=== PATIENT | male | born 1970 | race Caucasian/White ===

== ENCOUNTER 2018-09-29 06:23 | Inpatient (IN) | payer OTHER ==
[2018-09-29] MEDS ORDERED: SEVOFLURANE 15 MIN (07:00)
[2018-09-29] MEDS ORDERED: ROCURONIUM 50 MG INJ (07:00)
[2018-09-29] MEDS ORDERED: CEFAZOLIN 1 GM INJ (07:00)
[2018-09-29] MEDS: CEFAZOLIN 1 GM INJ (09:15)
[2018-09-29] MEDS: BUPIVACAINE 0.5%/EPI (SDV) 30 ML INJ ×2 (09:15→14:02)
[2018-09-29] MEDS: GELATIN SIZE 100 SPONGE (09:16)
[2018-09-29] MEDS: THROMBIN 5000 UNIT VIAL (09:16)
[2018-09-29] MEDS: HEPARIN 1000 UNITS/ML 10 ML INJ (09:19)
[2018-09-29] MEDS ORDERED: MEPERIDINE 25 MG INJ (15:11)
[2018-09-29] MEDS ORDERED: FENTAnyl 50 MCG/ML VIAL (15:11)
[2018-09-29] MEDS: MEPERIDINE 25 MG INJ IV (15:13)
[2018-09-29] MEDS: FENTAnyl 50 MCG/ML VIAL IV ×2 (15:15→15:36)
[2018-09-29] MEDS ORDERED: FENTAnyl 50 MCG/ML VIAL IV (15:30)
[2018-09-29] MEDS ORDERED: hydrALAzine 20 MG INJ IV (15:30)
[2018-09-29] MEDS ORDERED: HYDROmorphONE 1 MG/5 ML IV SYRINGE IV (15:30)
[2018-09-29] MEDS ORDERED: ACETAMINOPHEN 325 MG TAB PO (15:30)
[2018-09-29] MEDS ORDERED: PROCHLORPERAZINE 10 MG TAB PO (15:30)
[2018-09-29] MEDS ORDERED: NALOXONE (0.4 MG/ML) INJ IV (15:30)
[2018-09-29] MEDS ORDERED: ONDANSETRON 4 MG INJ IV ×2 (15:30)
[2018-09-29] MEDS ORDERED: LABETALOL HCL 20MG INJ IV (15:30)
[2018-09-29] MEDS ORDERED: NACL 0.9% 3 ML SYG IV (15:30)
[2018-09-29] MEDS ORDERED: HYDROCODONE/APAP (5/325) TAB PO (15:30)
[2018-09-29] MEDS ORDERED: METOCLOPRAMIDE 10 MG INJ IV (15:30)
[2018-09-29] MEDS: HYDROmorphONE 0.2 MG/ML PCA IV (15:33)
[2018-09-29] MEDS: HYDROmorphONE 1 MG/5 ML IV SYRINGE IV ×3 (15:56→16:19)
[2018-09-29] MEDS ORDERED: DIPHENHYDRAMINE 50 MG INJ (16:44)
[2018-09-29] MEDS ORDERED: ALBUTEROL HFA 8 GM INHALER INH (17:00)
[2018-09-29] MEDS ORDERED: DIPHENHYDRAMINE 50 MG INJ IV (17:00)
[2018-09-29] MEDS: SOD CHLORIDE 0.9% 1,000 ML IV (17:42)
[2018-09-29] MEDS: CEFAZOLIN 1 GM/50 ML (PMX) 50 ML IVPB ×2 (17:42→23:57)
[2018-09-29] MEDS ORDERED: LORAZEPAM 2 MG INJ IV (21:30)
[2018-09-29] MEDS: MOMETASONE 0.24 GM INHALER INH (21:48)
[2018-09-29] MEDS: LORAZEPAM 2 MG INJ IV (22:59)
[2018-09-30] MEDS: CEFAZOLIN 1 GM/50 ML (PMX) 50 ML IVPB ×2 (05:03→11:41)
[2018-09-30] MEDS: HYDROmorphONE 0.2 MG/ML PCA IV ×2 (05:03→17:01)
[2018-09-30] MEDS: PANTOPRAZOLE (EC) 40 MG TAB PO (05:24)
[2018-09-30] MEDS: SOD CHLORIDE 0.9% 1,000 ML IV ×3 (05:30→18:00)
[2018-09-30 05:45] LABS: HEMATOCRIT 37.3 % (42.0-52.0); HEMOGLOBIN 12.5 g/dl (14.0-18.0)
[2018-09-30 06:15] LABS: ANION GAP 6 (5-13); BLOOD UREA NITROGEN 20 mg/dl (7-20); CALCIUM 8.1 mg/dl (8.4-10.2); CARBON DIOXIDE 31 mmol/L (21-31); CHLORIDE 97 mmol/L (97-110); CREATININE 0.91 mg/dl (0.61-1.24); Estimated GFR > 60 mL/min (>60); GLUCOSE 115 mg/dl (70-220); POTASSIUM 3.7 mmol/L (3.5-5.1); SODIUM 134 mmol/L (135-144)
[2018-09-30] MEDS: LOSARTAN 50 MG TAB PO (09:37)
[2018-09-30] MEDS: MOMETASONE 0.24 GM INHALER INH ×2 (09:37→21:20)
[2018-09-30] MEDS: DOCUSATE SODIUM 100 MG CAP PO ×2 (09:37→21:20)
[2018-09-30] MEDS: METHOCARBAMOL 500 MG TAB PO ×2 (11:40→19:20)
[2018-09-30] MEDS: LORAZEPAM 2 MG INJ IV ×2 (13:32→21:44)
[2018-09-30] MEDS: HYDROCODONE/APAP (5/325) TAB PO (19:23)
[2018-09-30] MEDS: HYDROmorphONE 0.5 MG/0.5 ML SYG IV (21:44)
[2018-10-01] MEDS: OXYCODONE/ACETAMINOPHEN (10/325) TAB PO ×2 (00:53→07:19)
[2018-10-01] MEDS: PANTOPRAZOLE (EC) 40 MG TAB PO (06:00)
[2018-10-01] MEDS: SOD CHLORIDE 0.9% 1,000 ML IV ×2 (06:30→20:15)
[2018-10-01] MEDS: METHOCARBAMOL 500 MG TAB PO ×2 (07:19→22:43)
[2018-10-01] MEDS: HYDROmorphONE 0.5 MG/0.5 ML SYG IV ×4 (08:18→20:36)
[2018-10-01 09:05] LABS: ADD MAN DIFF? NO
[2018-10-01 09:09] LABS: BASOPHIL # 0.1 10^3/ul (0.0-0.1); BASOPHILS % 0.5 % (0.0-2.0); EOSINOPHILS % 0.3 % (0.0-7.0); LYMPHOCYTES # 2.4 10^3/ul (0.8-2.9); LYMPHOCYTES % 19.7 % (15.0-51.0); MEAN CORPUSCULAR HEMOGLOBIN 30.6 pg (29.0-33.0); MEAN CORPUSCULAR HGB CONC 33.3 g/dl (32.0-37.0); MEAN CORPUSCULAR VOLUME 91.8 fl (82.0-101.0); MEAN PLATELET VOLUME 9.9 fl (7.4-10.4); MONOCYTES % 8.4 % (0.0-11.0); NEUTROPHIL # 8.5 10^3/ul (1.6-7.5); NEUTROPHILS % 70.7 % (39.0-77.0); PLATELET COUNT 211 10^3/UL (140-415); RED BLOOD COUNT 3.92 10^6/ul (4.70-6.10); RED CELL DISTRIBUTION WIDTH 12.5 % (11.5-14.5)
[2018-10-01 09:30] LABS: ANION GAP 4 (5-13); BLOOD UREA NITROGEN 14 mg/dl (7-20); CALCIUM 8.3 mg/dl (8.4-10.2); CARBON DIOXIDE 31 mmol/L (21-31); CHLORIDE 97 mmol/L (97-110); CREATININE 0.68 mg/dl (0.61-1.24); Estimated GFR > 60 mL/min (>60); GLUCOSE 91 mg/dl (70-220); POTASSIUM 3.8 mmol/L (3.5-5.1); SODIUM 132 mmol/L (135-144)
[2018-10-01] MEDS: DOCUSATE SODIUM 100 MG CAP PO ×2 (10:31→22:19)
[2018-10-01] MEDS: LOSARTAN 50 MG TAB PO (10:32)
[2018-10-01] MEDS: AL HYDROX/MG HYDROX/SIMETH 30 ML CUP PO (10:34)
[2018-10-01] MEDS: LORAZEPAM 2 MG INJ IV ×2 (10:37→23:14)
[2018-10-01] MEDS: NICOTINE (21 MG/24 HR) PATCH TRANSDERM (14:41)
[2018-10-01] MEDS: oxyCODONE (CR) 10 MG TAB [oxyCONTIN] PO ×2 (14:42→22:18)
[2018-10-01] MEDS: MOMETASONE 0.24 GM INHALER INH ×2 (16:14→22:19)
[2018-10-02] MEDS ORDERED: DIAZEPAM 5 MG TAB PO ×2 (02:00→14:30)
[2018-10-02] MEDS: HYDROmorphONE 0.5 MG/0.5 ML SYG IV ×3 (02:05→15:52)
[2018-10-02] MEDS ORDERED: LORAZEPAM 1 MG TAB PO (03:00)
[2018-10-02] MEDS: LORAZEPAM 2 MG INJ IV ×2 (05:25→12:46)
[2018-10-02] MEDS: PANTOPRAZOLE (EC) 40 MG TAB PO ×2 (06:00→08:34)
[2018-10-02] MEDS ORDERED: DIAZEPAM 5 MG/ML SYG IV (06:30)
[2018-10-02] MEDS: SOD CHLORIDE 0.9% 1,000 ML IV ×2 (07:30→12:22)
[2018-10-02] MEDS ORDERED: LORAZEPAM 2 MG INJ IV (08:00)
[2018-10-02] MEDS: DOCUSATE SODIUM 100 MG CAP PO (08:28)
[2018-10-02] MEDS: LOSARTAN 50 MG TAB PO (08:29)
[2018-10-02] MEDS: MOMETASONE 0.24 GM INHALER INH (08:29)
[2018-10-02] MEDS: NICOTINE (21 MG/24 HR) PATCH TRANSDERM (08:30)
[2018-10-02] MEDS: DIAZEPAM 5 MG/ML SYG IV ×2 (08:36→15:15)
[2018-10-02] MEDS: oxyCODONE (CR) 10 MG TAB [oxyCONTIN] PO (10:03)
[2018-10-02 10:18] LABS: ANION GAP 7 (5-13); BLOOD UREA NITROGEN 14 mg/dl (7-20); CALCIUM 8.6 mg/dl (8.4-10.2); CARBON DIOXIDE 30 mmol/L (21-31); CHLORIDE 97 mmol/L (97-110); CREATININE 0.75 mg/dl (0.61-1.24); Estimated GFR > 60 mL/min (>60); GLUCOSE 94 mg/dl (70-220); POTASSIUM 3.5 mmol/L (3.5-5.1); SODIUM 134 mmol/L (135-144)
[2018-10-02] MEDS ORDERED: BISACODYL 10 MG SUPP PR (17:30)
[2018-10-02] MEDS ORDERED: QUETIAPINE 25 MG TAB PO (18:00)
[2018-10-02] MEDS: THIAMINE 100 MG TAB PO (18:03)
[2018-10-02] MEDS: QUETIAPINE 25 MG TAB PO (18:03)
[2018-10-02] MEDS: OXYCODONE/ACETAMINOPHEN (5/325) TAB PO (18:03)
[2018-10-02] MEDS: MULTIVITAMINS 10 ML, FOLIC ACID 1 MG in SOD CHLORIDE 0.9% 1,000 ML IVPB (18:06)
[2018-10-02] MEDS ORDERED: MELATONIN 3 MG TABLET PO (21:00)
[2018-10-03] MEDS ORDERED: MULTIVITAMINS 10 ML, THIAMINE 100 MG, FOLIC ACID 1 MG in SOD CHLORIDE 0.9% 1,000 ML IVPB (09:00)
== END 2018-10-02 19:45 | disposition left against medical advice (07) | DRG 454 ==
LOC: REC 06:23 → MS1 10-02 03:43
PROC: 0SG00A0 Fusion of Lumbar Vertebral Joint with Interbody Fusion Device, Anterior Approach, Anterior Column, Open Approach (ICD-10-PCS; principal; 2018-09-29 08:00)
PROC: 0SG00K1 Fusion of Lumbar Vertebral Joint with Nonautologous Tissue Substitute, Posterior Approach, Posterior Column, Open Approach (ICD-10-PCS; 2018-09-29 08:00)
PROC: 0SG30A0 Fusion of Lumbosacral Joint with Interbody Fusion Device, Anterior Approach, Anterior Column, Open Approach (ICD-10-PCS; 2018-09-29 08:00)
PROC: 0SG30K1 Fusion of Lumbosacral Joint with Nonautologous Tissue Substitute, Posterior Approach, Posterior Column, Open Approach (ICD-10-PCS; 2018-09-29 08:00)
PROC: 0SB40ZZ Excision of Lumbosacral Disc, Open Approach (ICD-10-PCS; 2018-09-29 08:00)
PROC: 0SB20ZZ Excision of Lumbar Vertebral Disc, Open Approach (ICD-10-PCS; 2018-09-29 08:00)
PROC: 0WJR0ZZ Inspection of Genitourinary Tract, Open Approach (ICD-10-PCS; 2018-09-29 08:03)
DX: M51.16 Intervertebral disc disorders with radiculopathy, lumbar region (principal); F10.231 Alcohol dependence with withdrawal delirium; M51.17 Intervertebral disc disorders with radiculopathy, lumbosacral region; M47.26 Other spondylosis with radiculopathy, lumbar region; M48.07 Spinal stenosis, lumbosacral region; M48.061 Spinal stenosis, lumbar region without neurogenic claudication; I10 Essential (primary) hypertension; F17.210 Nicotine dependence, cigarettes, uncomplicated; J45.40 Moderate persistent asthma, uncomplicated; K21.9 Gastro-esophageal reflux disease without esophagitis; R45.1 Restlessness and agitation; R31.0 Gross hematuria
CPT/HCPCS: 72131; 76775; 80048; 85014; 85018; 85025; 86850; 86900; 86901; 86920; 97110; 97116; 97161; 97530